=== PATIENT | female | born 1970 | race Two or more races ===

== ENCOUNTER 2021-08-17 06:18 | Day surgery (SDC) | payer OTHER ==
[~2021-08-17 06:18] MED LIST: DIAMOX PO; LISINO PO; SINGULAIR10 MG PO; ZESTRIL2.5 MG PO
== END 2021-08-17 22:00 | disposition home or self-care (01) ==
LOC: CIR.AMB 06:18
PROVIDERS: ATTEND Otolaryngology
DX: J35.1 Hypertrophy of tonsils (principal); Z20.822 Contact with and (suspected) exposure to COVID-19